=== PATIENT | female | born 1960 | race Caucasian/White ===

== ENCOUNTER 2018-09-13 10:33 | Outpatient (CLI) | payer OTHER, SELFPAY ==
--- NOTE | 2018-09-13 10:29 | DI.RAD_ITS ---
SYMPTOMS/DIAGNOSIS: RT KNEE PAIN RIGHT KNEE: Three views. No priors. There is moderate severe narrowing of the lateral femoral tibial joint space and mild narrowing of the patellofemoral joint. There is periarticular spurring seen both in the patellofemoral joint and lateral femoral tibial joint space. The bones appear intact. The soft tissues are unremarkable. IMPRESSION: Moderately severe degenerative changes of the right knee.
== END 2018-09-13 10:53 ==
PROVIDERS: Visit Provider Physician Assistant
DX: M25.561 Pain in right knee (principal); M17.11 Unilateral primary osteoarthritis, right knee
CPT/HCPCS: 73562

== ENCOUNTER 2018-12-20 13:41 | Outpatient (CLI) | payer OTHER, SELFPAY ==
--- NOTE | 2018-12-20 13:31 | DI.RAD_ITS ---
SYMPTOM/DIAGNOSIS: LT TIBIA PAIN LEFT TIBIA AND FIBULA: There is no evidence of fracture. Mild degenerative changes are seen at the knee and ankle.
== END 2018-12-20 14:01 ==
PROVIDERS: PCP General Practice; Visit Provider Student in an Organized Health Care Education/Training Program
DX: M79.605 Pain in left leg (principal); M17.12 Unilateral primary osteoarthritis, left knee; M19.072 Primary osteoarthritis, left ankle and foot
CPT/HCPCS: 73590

== ENCOUNTER 2019-03-10 13:02 | Outpatient (CLI) | payer OTHER, SELFPAY ==
--- NOTE | 2019-03-10 06:00 | DI.RAD_ITS ---
SYMPTOMS/DIAGNOSIS: LUMBAR RADICULOPATHY PAIN CLINIC LUMBAR SPINE: Fluoroscopy Time: 20.8 sec C-arm fluoroscopy was utilized by Dr. Hendrickson. Please see Dr. Hendrickson's procedure note. Hard copy shows midline needle placement at the L5-S1 level.
[2019-03-10 13:41] VITALS: BP 157/89; PULSE 85; RESP 22; TEMP 37.5; O2SAT 96
[2019-03-10 14:25] VITALS: BP 157/80; PULSE 102; RESP 21; O2SAT 99
--- NOTE | 2019-03-10 14:26 | PDOC.PAIN ---
Pain Clinic Procedure Note Current Active Problems Problem Status Onset Lumbosacral radiculopathy Lumbar Epidural Steroid Injection Procedure Note COMMENTS:I did review her notes from Ms. Santiago and her most recent lumbar spine MRI. HARSHA GOLDMAN has been referred to the [facility] for lumbar epidural steroid injection. The patient was greeted by the nurse who verified patients name and . Patient was then taken to the fluoroscopy suite. The patient was interviewed and the medial record reviewed. There were no medical, pharmacologic, radiographic, or other structural contraindications to attempting fluoroscopically guided lumbar epidural steroid injection. Risks and expected side effects as well as potential benefits of the procedure were reviewed and voiced concerns expressed. The patient consent form was signed and witnessed. Standard patient time-out procedure was performed. The patient was placed in the prone position on the fluoroscopy table and automated blood pressure cuff and pulse oximeter applied. The skin entry point for entering/approaching the epidural space at L5-S1 and marked. Following thorough chlorhexadine preparation of the skin and draping and 1% lidocaine infiltration of the skin entry point and subcutaneous tissues, a 17 gauge 5 Touhy needle was placed under fluoroscopic guidance and with loss of resistance technique into the epidural space. Needle tip placement and depth were aided and confirmed by fluoroscopy. There was no paresthesia or return of blood or CSF through the needle. 1 cc's of Omnipaque 240 was injected with clear epidural spread confirmed with fluoroscopy. 40mg depomedrol was injected. There was not any unusual discomfort expressed by HARSHA GOLDMAN. Patient's vital signs were stable throughout the procedure and were as recorded in nursing records. Follow up plans and appointments were discussed with patient. Post procedure instruction was given as documented in nursing records and having met discharge criteria and was discharged from the [facility]. COMMENTS: If this procedure is helpful, it can be completed up to 3 times per 12 months.
[2019-03-10] MEDS: Omnipaque 240 MG/ML 50 ML BTL IJ (14:33)
[2019-03-10] MEDS: methylPREDNISolone ACETATE 40 MG/ML VIAL IJ (14:34)
== END 2019-03-10 13:22 ==
PROVIDERS: PCP General Practice; Visit Provider Preventive Medicine Occupational Medicine
DX: M54.17 Radiculopathy, lumbosacral region (principal)
CPT/HCPCS: 62323; 72100; J1030; Q9967

== ENCOUNTER 2025-04-11 01:34 | Outpatient (CLI) | payer OTHER, SELFPAY ==
--- NOTE | 2025-04-11 13:15 | W.NUTRFU ---
Date of service: 04/11/25 Time of Service: 12:00 Nutrition Note NOTE: Maria G spent some time with me sharing her frustration with weight loss plateau after experiencing a 27lb weight loss since . She started losing weight on her own and started semaglutide, which helped but she states first few weekd of December she went up from the starting dose and starting feeling sick - she sopped taking it at the end of January. She shares she feels she has been doing everything - watching added sugar and avoiding carbs like potatoes pasta and rice. Shared typical breakfast and other meals with me and, although she enjoys foods with fiber, she may be needing to get more for her weight loss goals and suggested periodic tracking to ensure a consistent intake of 25g or more with lots of fluid and any movement she can particpate in to help move bowels regularly. She is aware of the importance of protein, but may be short on meeting optimal amount conducive for weight loss - suggested goal of 112g per day and trying to get at least 30grams, ideally closer to 50g at breakfast, within first hour of waking. She arrives in wheelchair and shares that lower body movement is very hard and painful - I suggested she work with provider on this and focus attention on upper body movement and especially any resistance training she can engage in to help with toning muscle and incrasing insulin sensitivity. Reviewed bkfst ideas and general sample menus based on 1500kcals recommendation, fiber and protein goals as above. encouraged not to be shy of starches but choose traditional choices and consider legumes a great daily habit to get into getting multiple servings. We discussed some tips such as using vinegar on foods, drinking unsweetened green tea and hibiscus tea, pre-loading meals with fiber and water, spices etc... We made a follow up visit for 1 month to check in Time Spent in Nutritional Counseling and Treatment: 55 min
== END 2025-04-11 01:35 | disposition home or self-care (01) ==
LOC: DS 01:34
PROVIDERS: PCP General Practice; Visit Provider Dietitian, Registered
DX: E66.01 Morbid (severe) obesity due to excess calories (principal); E11.9 Type 2 diabetes mellitus without complications
CPT/HCPCS: 00123; 97802